=== PATIENT | female | born 1940 | race Caucasian/White ===

== ENCOUNTER 2018-12-07 00:39 | Emergency (ER) | payer OTHER ==
[~2018-12-07] VITALS: Ht 144.8 cm; Wt 62.1 kg
[2018-12-07] MEDS ORDERED: LIPITOR20 MG PO (02:49)
[2018-12-07] MEDS ORDERED: LOSARTAN POTASS50 MG PO (02:49)
[2018-12-07] MEDS ORDERED: ISOSORBIDE DINI20 MG PO (02:49)
[2018-12-07] MEDS ORDERED: DUI500 PO (02:54)
== END 2018-12-07 02:58 | disposition home or self-care (01) ==
LOC: ER 00:39
DX: S01.82XA Laceration with foreign body of other part of head, initial encounter (principal); S00.83XA Contusion of other part of head, initial encounter; W18.09XA Striking against other object with subsequent fall, initial encounter; Y93.89 Activity, other specified; Y92.091 Bathroom in other non-institutional residence as the place of occurrence of the external cause; Y99.8 Other external cause status